=== PATIENT | female | born 1970 | race Caucasian/White ===

== ENCOUNTER 2019-01-12 15:03 | Outpatient (CLI) | payer BC ==
--- NOTE | 2019-01-12 15:31 | RAD ---
Right ankle 3 views: HISTORY: Right ankle pain and swelling FINDINGS: The ankle mortise is maintained. No fracture or dislocation is identified.
--- NOTE | 2019-01-12 15:32 | RAD ---
RIGHT FOOT 3 VIEWS: HISTORY: Pain in the right foot pain and swelling FINDINGS: No fracture, dislocation or bony destruction is identified.
== END 2019-01-12 15:04 | disposition home or self-care (01) ==
LOC: SCSRAD 15:03
PROVIDERS: ATTEND General Practice
DX: M25.571 Pain in right ankle and joints of right foot (principal); M79.671 Pain in right foot; R22.41 Localized swelling, mass and lump, right lower limb